=== PATIENT | male | born 1935 | race Caucasian/White ===

== ENCOUNTER → 2018-05-12 | Outpatient (REF) | payer OTHER | LOC: M LAB REF 09:34 | DX: N39.0 Urinary tract infection, site not specified (principal) | CPT/HCPCS: 87186 ==

== ENCOUNTER 2019-11-15 09:31 | Inpatient (IN) | payer OTHER ==
[~2019-11-15] VITALS: Ht 175.3 cm; Wt 73.6 kg
[2019-11-15] MEDS ORDERED: LIDOCAINE 2% 5ML JELLY UROJET TOP ONE (10:30)
[2019-11-15 10:45] LABS: VENOUS BASE EXCESS -2.7 (-2.0-2.0); VENOUS O2 SATURATION 60.8 % (60.0-80.0); VENOUS PARTIAL PRESSURE CO2 49.8 mmHg (38.0-50.0); VENOUS PH 7.301 UNITS (7.330-7.430); VENOUS STANDARD HCO3 21.5 MEQ/L; VENOUS TOTAL CO2 25.5 MEQ/L (24.0-28.0)
[2019-11-15] MEDS ORDERED: GABA800T4 PO (10:58)
[2019-11-15] MEDS ORDERED: LISI-542 PO (10:58)
[2019-11-15] MEDS ORDERED: GLIP10TA PO (11:00)
[2019-11-15] MEDS ORDERED: ATOR80TA59 PO (11:00)
[2019-11-15] MEDS ORDERED: CLOP75TA2 PO (11:00)
[2019-11-15] MEDS ORDERED: AMLO10TA5 PO (11:00)
[2019-11-15] MEDS ORDERED: ACAR50TA2 PO (11:00)
[2019-11-15 11:01] LABS: BASO % 0.2 % (0.0-1.0); EOS # 0.2 10^3/uL (0.0-0.5); EOS % 1.9 % (0.0-3.0); HEMATOCRIT 36.3 % (42.0-52.0); HEMOGLOBIN 11.7 g/dl (13.5-17.5); LYMPH # 1.8 10^3/uL (1.5-5.0); LYMPH % 14.7 % (24.0-44.0); MEAN CORPUSCULAR HEMOGLOBIN 32.1 pg (27.0-33.0); MEAN CORPUSCULAR HGB CONC 32.2 g/dl (32.0-36.5); MEAN CORPUSCULAR VOLUME 99.5 fl (80.0-96.0); MONO # 1.9 10^3/uL (0.0-0.8); MONO % 15.6 % (0.0-5.0); NEUTROPHILS # 8.1 10^3/uL (1.5-8.5); NEUTROPHILS % 67.3 % (36.0-66.0); PLATELET COUNT, AUTOMATED 158 10^3/uL (150-450); RED BLOOD COUNT 3.65 10^6/uL (4.30-6.10)
--- NOTE | 2019-11-15 11:15 | REP ---
Portable chest, 10:57 a.m., single AP view: There are no comparisons. The lung smith are clear. Cardiac size is normal. The geovanna, mediastinum, skeletal structures are unremarkable. Impression: Negative portable chest. Electronically Signed by Michael Brown MD 11/15/2019 11:07 A
--- NOTE | 2019-11-15 11:28 | REP ---
CT brain without contrast: History: Altered mental status. No comparison study. 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 The bony calvarium is intact. There is moderate vascular calcification in the distal carotid arteries bilaterally. There is an air-fluid level in the top of the right maxillary sinus. The paranasal sinuses are otherwise clear. No intraorbital abnormality is seen. On soft tissue window settings, there is mild generalized volume loss. There is no evidence of hemorrhage. There is a small 5 mm low density area in the right basal ganglia of uncertain significance. This could be a subacute lacunar infarct or an area of small vessel change. There is no evidence of cortical infarction. No extra-axial fluid collection, mass, or midline shift is appreciated. Also noted is a small 4 mm linear area of increased density to the left of midline in the juan jose. This is most compatible with a small dystrophic calcification. Impression: Vascular calcification, generalized atrophy. There is a 5 mm low density in the right basal ganglia uncertain significance, recent lacunar infarct is possible. There is a 4 mm linear density to the left of midline in the juan jose which may be a small dystrophic calcification. Consider MRI scanning. Electronically Signed by David Bess MD 11/15/2019 06:35 P
[2019-11-15 11:32] LABS: ALBUMIN 3.1 GM/DL (3.2-5.2); ALT/SGPT 22 U/L (12-78); BILIRUBIN,DIRECT 0.2 MG/DL (0.0-0.2); BILIRUBIN,TOTAL 0.6 MG/DL (0.2-1.0); BLOOD UREA NITROGEN 43 MG/DL (7-18); CALCIUM LEVEL 8.6 MG/DL (8.8-10.2); CARBON DIOXIDE LEVEL 26 MEQ/L (21-32); CHLORIDE LEVEL 103 MEQ/L (98-107); CK-MB VALUE MASS < 1.0 NG/ML (<3.6); CPK CREATINE PHOSPHOKINASE 150 U/L (39-308); CREATININE FOR GFR 2.84 MG/DL (0.70-1.30); GLOMERULAR FILTRATION RATE 22.7 (>35); GLUCOSE, FASTING 118 MG/DL (70-100); MB/CK RELATIVE INDEX 0.67 (< OR =4); POTASSIUM SERUM 4.5 MEQ/L (3.5-5.1); SODIUM LEVEL 137 MEQ/L (136-145); TOTAL PROTEIN 6.3 GM/DL (6.4-8.2); TROPONIN I < 0.02 NG/ML (< 0.10)
[2019-11-15] MEDS ORDERED: cefTRIAXone SOD 2 GM in D5W MINI-BAG PLUS 50 ML IV ONE (11:45)
--- NOTE | 2019-11-15 12:21 | REP ---
CT of the abdomen and pelvis without IV and oral contrast for renal/ureteral calculi: There are no comparisons. There is hydronephrosis of the left renal pelvis and entire left ureter to the bladder. However, there is no renal or ureteral calculus. This may represent a stricture of the distal ureter at the bladder. There are no right renal or ureteral calculi. There is no right hydronephrosis. There is minimal perinephric stranding bilaterally, compatible with patient age. There are faintly visible bilateral renal cortical hypodensities, likely renal cysts. The visualized lung smith are unremarkable. The unenhanced hepatic parenchyma, gallbladder, pancreas and spleen are unremarkable except for calcified splenic granulomas. The adrenals are unremarkable. The abdominal aorta is unremarkable except for occasional atheroma. There is no periaortic adenopathy or mass. There is no bowel distension or obstruction. Mesentery is unremarkable. There is no ascites. Pelvis: There is a 2.0 cm bladder diverticulum on the left. There are no bladder calculi. The bladder wall is unremarkable. There is no ascites or adenopathy. The pelvic bowel loops are unremarkable. Impression: There is left hydronephrosis and hydroureter to the urinary bladder. However, there is no renal or ureteral calculus. This may represent a stricture of the distal ureter at the bladder. There is a bladder diverticulum on the left measuring 2.1 cm diameter. Splenic calcified granulomas. Renal cortical cysts. Electronically Signed by Michael Brown MD 11/15/2019 12:13 P
[2019-11-15] MEDS ORDERED: TIMO0.5S39 OU (12:31)
[2019-11-15] MEDS ORDERED: ECOT81TA5 PO (12:31)
[2019-11-15] MEDS ORDERED: FISH1000 PO (12:31)
[2019-11-15] MEDS ORDERED: ISOS5TA PO (12:31)
[2019-11-15] MEDS ORDERED: XALA0.007 OU (12:31)
[2019-11-15] MEDS ORDERED: TYLETAB14 PO (12:34)
[2019-11-15] MEDS ORDERED: VITA100054 PO (12:34)
[2019-11-15] MEDS ORDERED: BACT800T5 PO (12:34)
[2019-11-15] MEDS ORDERED: GLUCOSE 4 GM CHEW TABLET PO PRN (13:15)
[2019-11-15] MEDS ORDERED: DEXTROSE 50% 50 ML SYRINGE IV PRN (13:15)
[2019-11-15] MEDS ORDERED: GLUCAGON FOR INJ 1 MG VIAL (J1610) SC PRN (13:15)
[2019-11-15] MEDS ORDERED: ACETAMINOPH W/CODEINE #3 TAB UD PO PRN (13:15)
[2019-11-15] MEDS ORDERED: NS 1,000 ML IV ONE (14:00)
[2019-11-15] MEDS ORDERED: BISACODYL 10 MG SUPP PR PRN (15:00)
[2019-11-15] MEDS: NS 1,000 ML IV SCH (15:45)
[2019-11-15 16:00] VITALS: BP 114/51
--- NOTE | 2019-11-15 18:27 | HPE ---
DATE OF ADMISSION: 11/15/2019 CHIEF COMPLAINT: Cloudy, foul smelling urine, difficulty ambulating. HISTORY OF PRESENT ILLNESS: This is an 84-year-old male with a history of chronic urinary retention with self catheterization at home, urinary tract infection (UTI), diabetes, coronary artery disease, myocardial infarction times three, follows with Dr. Sofia, glaucoma, peripheral neuropathy, who presents to the emergency room with 4 day history of weakness and falls, unable to get up from bed, needing help and feeling off balance. The patient has been having a chest cold and most recently given Bactrim on Monday from the [facility] for what was presumed to be a urinary tract infection (UTI). According to the , the patient has had dark cloudy urine despite drinking about three bottles of liquids at home. He has had a decreased appetite and has been increasingly weak. He usually catheterizes himself and has recently been requiring help from the family with his ambulation. He also complains of some rhinorrhea, cough productive of white sputum, sounding "rattly." No medications were taken. He has not had any weight gain or weight loss, nausea or vomiting, headaches, changes in vision. Denies any epigastric abdominal pain. The patient has taken Bactrim with worsening balance and weakness, prompting the family to bring him to the emergency room. In the emergency room, he had a low grade temperature of 99.2, white count of 12,000, urine had 3+ leukocyte esterase, 73 WBCs, and 1+ bacteria. Creatinine is markedly different from baseline of 1.5 to current creatinine of 2.8. The hospitalist service was called to admit for acute kidney injury on chronic renal failure, urinary tract infection (UTI), hydronephrosis, and questionable CVA on CT of the head. PAST MEDICAL HISTORY: 1. Diabetes. 2. Diabetic neuropathy. 3. Coronary artery disease. 4. Myocardial infarction December 2018 with three stents, follows with Dr. Sofia. 5. Glaucoma. 6. Neuropathy. 7. Urinary tract infection (UTI). PAST SURGICAL HISTORY: 1. Coronary stents times three in December 2018. 2. Hernia surgery. 3. Ureteral dilation. 4. Appendectomy as a young man. ALLERGIES: No known drug allergies. 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 Healthcare proxy is the . Phone number is [phone]. Medical Orders for Life Sustaining Treatment (MOLST) form indicates DO NOT RESUSCITATE, DO NOT INTUBATE. MOLST form has been signed. and the patient live in senior housing in [place]. He lives on a third floor with an elevator. The patient had previously lived in [place] and recently moved here permanently. Quit smoking 33 years ago. Previously smoked a pack a day from age 15 to the age of 39. FAMILY HISTORY: Noncontributory due to advanced age. REVIEW OF SYSTEMS: As per history of present illness. 12-point system otherwise negative. PHYSICAL EXAMINATION: VITAL SIGNS: Temperature 99.2, pulse 64, respiratory rate 20, blood pressure 105/54, 95% on room air. GENERAL: The patient is edentulous, awake, alert, oriented. Appears his stated age. There is no conversational dyspnea. Able to complete full sentences. Pupils are round and reactive. Extraocular muscles are intact. Tongue is midline. Dry mucous membranes. No cervical lymphadenopathy or thyromegaly. No jugular venous distention (JVD). Trachea is midline. No carotid bruits. LUNGS: Clear to auscultation. No wheezing, rales or rhonchi. HEART: S1, S2. Sinus rhythm. ABDOMEN: Soft, nontender, nondistended. Positive bowel sounds. No costovertebral angle tenderness. No rebound or guarding. No abdominal bruits. EXTREMITIES: Multiple excoriations on bilateral upper and lower extremities. No pitting edema. Electrocardiogram (EKG) is pending. LABORATORY DATA: White count 12, hemoglobin 11, hematocrit 36. Platelet count 158. Sodium 137, potassium 4.5, chloride 103, bicarbonate 26, BUN 43, creatinine 2.84, baseline of 1.5, glucose 118, lactic acid 1.9, calcium 8.6, total bilirubin 0.6, direct bilirubin 0.2, AST 21, ALT 22, alkaline phosphatase 78, ammonia 13, total CK 150, MB fraction less than 1, troponin less than 0.02, TSH 2.710. IMAGING STUDIES: CT of the head showed moderate calcification in distal carotid arteries bilaterally, air-fluid level in right maxillary sinus, 5 mm low density right basal ganglia of uncertain significance, could be subacute lacunar infarct or an area of small vessel change, no evidence of cortical infarction, no fluid collection or mid line shift. 4 cm linear increased density in the left midline of the juan jose compatible with small dystrophic calcification, consider MRI scan. Urinalysis was yellow in color, hazy appearance, pH of 5. Protein, glucose, ketones, blood, nitrate, bilirubin negative. Leukocyte esterase 3+. WBC 73, RBCs 4, 1+ bacteria. Chest x-ray showed lungs clear. Cardiac size is normal. Negative portable chest x-ray. CT of the abdomen and pelvis showed hydronephrosis of the left renal pelvis, entire left ureter to the bladder, no renal or ureteral calculus. May represent stricture of distal ureter of the bladder. No right hydronephrosis. Minimal perinephric stranding bilaterally compatible with age. Possible renal cyst. Lungs are unremarkable. Splenic calcified granulomas. ASSESSMENT AND PLAN: This is an 84-year-old male with a history of chronic urinary retention with self catheterization at home, diabetes, diabetic neuropathy, coronary artery disease, stent placed in December 2018 on chronic aspirin and Plavix, who presented to the emergency room with a 1 week history of worsening gait, upper respiratory symptoms and cloudy urine. THe patient was found to have acute on chronic renal failure, baseline creatinine of 1.5 and current creatinine is 2.8 with abnormal urinalysis and symptoms of urinary tract infection (UTI). He currently complains of dysuria, urgency, frequency, abdominal and discomfort, along with low grade fever. CT of the head to evaluate his weakness and gait ataxia revealed an abnormal CT with possible basal ganglia infarct. MRI is pending. The patient will be admitted as an inpatient for two midnights for the following issues: 1. Urinary tract infection present on admission. Most likely secondary to chronic urinary obstruction and self catheterization at home. The patient has been given intravenous ceftriaxone, which is renally dosed for 7 days. Urine culture to be sent, as well as blood cultures. 2. Hydronephrosis secondary to possible ureteral stricture to the bladder. Continue to monitor input and output. Gr catheter placement. Urology referral and consultation if patient has no significant improvement after fluid hydration and Gr catheter placement. No kidney stone noted. The patient may need dilation of the ureter. 3. Gait ataxia with questionable basal ganglia lacunar infarct. Obtain MRI and MRA of the brain. EKG. Cardiac markers. Telemetry monitoring. Neuro checks every 4 hours. The patient is already on aspirin and Plavix. 4. Coronary artery disease, myocardial infarction. Currently on aspirin. Uncertain why the patient is not on metoprolol. Continue on Lipitor and Plavix. 5. Diabetic neuropathy. On Neurontin. 6. Diabetes. On consistent carbohydrate diet, sliding scale and hypoglycemic protocol. 7. Chronic constipation. Bowel regimen. 8. Deep vein thrombosis (DVT) prophylaxis. Compression stockings. MTDD
[2019-11-15] MEDS: HumaLOG INSULIN (NovoLOG) PER UNIT SC SCH ×2 (18:43→21:00)
[2019-11-15] MEDS: LACTOBACILLUS ACIDOPHILUS CAP (BACID) PO SCH ×2 (18:45→22:04)
--- NOTE | 2019-11-15 19:07 | REPVR ---
PROCEDURE INFORMATION: Exam: US Duplex Bilateral Extracranial Arteries Exam date and time: 11/15/2019 6:09 PM Age: 84 years old Clinical indication: Walking, difficulty; Additional info: CVA TECHNIQUE: Imaging protocol: Real-time Duplex ultrasound scan of the bilateral carotid and vertebral arteries combining godinez scale, color Doppler and spectral waveform analysis. Bilateral exam. COMPARISON: No relevant prior studies available. FINDINGS: Right common carotid artery: Right CCA PSV 83.2 cm/s. Right internal carotid artery: Calcified and noncalcified plaque within the proximal right ICA. Right ICA PSV 209.3 cm/s. Right ICA/CCA ratio: Right ICA/CCA ratio is 2.52. Right external carotid artery: Calcified and noncalcified plaque within the proximal right ECA. Right ECA PSV 104.2 cm/s. Right vertebral artery: Patent right vertebral artery with bidirectional flow. Left common carotid artery: Soft plaque within the left CCA. Left CCA PSV 67.4 cm/s. Left internal carotid artery: Calcified and noncalcified plaque within the proximal left ICA. Left ICA PSV 99.3 cm/s. Left ICA/CCA ratio: Left ICA/CCA ratio 1.47. Left external carotid artery: Mild plaque within the proximal left ECA. Left ECA PSV 92.3 cm/s. Left vertebral artery: Patent left vertebral artery with bidirectional flow. IMPRESSION: 1. Right ICA stenosis: Moderate stenosis (50-69%). 2. Left ICA stenosis: Mild stenosis (left than 50%). REFERENCE: Carotid Stenosis Reference using SRU criteria: Mild: less than 50% stenosis. ICA PSV is less than 125 cm/second and plaque or intimal thickening is visible. Moderate: 50-69% stenosis. ICA PSV is 125 to 230 cm/second and plaque is visible. Severe: 70-94% stenosis. ICA PSV is more than 230 cm/second and visible plaque and lumen narrowing are seen. Near occlusion: 95-99% stenosis. ICA PSV is variable and significant plaque and luminal narrowing are seen. Occluded: 100% stenosis. No flow identified. Electronically signed by: Julian Sauceda On 11/15/2019 19:07:26 PM
[2019-11-15 20:24] LABS: CALCIUM LEVEL 7.9 MG/DL (8.8-10.2); CREATININE FOR GFR 2.71 MG/DL (0.70-1.30); GLOMERULAR FILTRATION RATE 23.9 (>35); POTASSIUM SERUM 4.4 MEQ/L (3.5-5.1)
--- NOTE | 2019-11-15 20:29 | ECGEPIP ---
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
--- NOTE | 2019-11-15 21:47 | REPVR ---
PROCEDURE INFORMATION: Exam: MR Head Without Contrast Exam date and time: 11/15/2019 11:48 AM Age: 84 years old Clinical indication: Weakness, extremity; Bilateral TECHNIQUE: Imaging protocol: MR of the head without contrast. 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 Nonspecific T2/FLAIR hyperintensities of the periventricular and deep subcortical white matter, most likely secondary to chronic small vessel ischemic change. No intracranial hemorrhage or extra-axial fluid collection. No evidence of mass effect or midline shift. No restricted diffusion to suggest acute infarct. Ventricles: Prominence of the ventricles and sulci, likely attributed to parenchymal volume loss. Bones/joints: Unremarkable. Soft tissues: Unremarkable. Sinuses: Air-fluid level in the right maxillary sinus. Mastoid air cells: No mastoid effusion. Orbits: Unremarkable. IMPRESSION: 1. No acute intracranial pathology. 2. Right maxillary sinusitis. 3. Other chronic findings, as above. Electronically signed by: Troy Urena On 11/15/2019 21:46:35 PM
[2019-11-15 22:00] VITALS: BP 115/56
--- NOTE | 2019-11-15 22:01 | REPVR ---
PROCEDURE INFORMATION: Exam: MR Angiogram Head Without Contrast, Arteries Exam date and time: 11/15/2019 11:48 AM Age: 84 years old Clinical indication: Bilateral extremity weakness. TECHNIQUE: Imaging protocol: MR angiogram head without contrast. Exam focused on the arteries. COMPARISON: CT Head without contrast 11/15/2019 10:54 AM, US - Duplex,carotid (complete) 11/15/2019 5:46:31 PM FINDINGS: Right internal carotid artery: Unremarkable. Intracranial segment is patent with no significant stenosis. No aneurysm. Right anterior cerebral artery: Unremarkable. No occlusion or significant stenosis. No aneurysm. Right middle cerebral artery: Unremarkable. No occlusion or significant stenosis. No aneurysm. Right posterior cerebral artery: Unremarkable. No occlusion or significant stenosis. No aneurysm. Right vertebral artery: Complete absence of flow related enhancement within the right vertebral artery. Left internal carotid artery: Unremarkable. Intracranial segment is patent with no significant stenosis. No aneurysm. Left anterior cerebral artery: Unremarkable. No occlusion or significant stenosis. No aneurysm. Left middle cerebral artery: Unremarkable. No occlusion or significant stenosis. No aneurysm. Left posterior cerebral artery: Unremarkable. No occlusion or significant stenosis. No aneurysm. Left vertebral artery: Unremarkable. No occlusion or significant stenosis. No aneurysm. Basilar artery: Unremarkable. No occlusion or significant stenosis. No aneurysm. IMPRESSION: Complete absence of flow related enhancement within the right vertebral artery. Although this could indicate potential obstruction of the superior right vertebral artery, the extracranial right vertebral artery was visualized and reported as patent on prior Doppler ultrasound. Therefore, this is highly suggestive of potential retrograde flow within the right vertebral artery, which could be secondary to underlying subclavian steal. Recommend correlation with CTA neck. Electronically signed by: Troy Urena On 11/15/2019 22:00:31 PM
[2019-11-15] MEDS: LATANOPROST 0.005% OPHTH SOLN 2.5 ML OU SCH (22:04)
[2019-11-15] MEDS: GABAPENTIN 400 MG CAP PO SCH (22:04)
[2019-11-15] MEDS: SENOKOT S TAB PO SCH (22:05)
[2019-11-15] MEDS: MIRALAX *UNIT DOSE* 17GM PACKET PO SCH (22:05)
[2019-11-16] MEDS: NS 1,000 ML IV SCH ×3 (04:33→16:17)
[2019-11-16 06:00] VITALS: BP 97/52
[2019-11-16 06:22] LABS: BASO % 0.2 % (0.0-1.0); EOS # 0.4 10^3/uL (0.0-0.5); EOS % 4.3 % (0.0-3.0); HEMATOCRIT 32.5 % (42.0-52.0); HEMOGLOBIN 10.4 g/dl (13.5-17.5); LYMPH # 1.5 10^3/uL (1.5-5.0); LYMPH % 18.4 % (24.0-44.0); MEAN CORPUSCULAR HEMOGLOBIN 31.7 pg (27.0-33.0); MEAN CORPUSCULAR VOLUME 99.1 fl (80.0-96.0); MONO # 1.4 10^3/uL (0.0-0.8); NEUTROPHILS # 4.9 10^3/uL (1.5-8.5); NEUTROPHILS % 59.9 % (36.0-66.0); PLATELET COUNT, AUTOMATED 143 10^3/uL (150-450); RED BLOOD COUNT 3.28 10^6/uL (4.30-6.10); WHITE BLOOD COUNT 8.2 10^3/uL (4.0-10.0)
[2019-11-16 06:28] LABS: CALCIUM LEVEL 7.8 MG/DL (8.8-10.2); CREATININE FOR GFR 2.37 MG/DL (0.70-1.30); GLOMERULAR FILTRATION RATE 27.9 (>35); POTASSIUM SERUM 4.5 MEQ/L (3.5-5.1)
--- NOTE | 2019-11-16 08:16 | ECGEPIP ---
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
[2019-11-16 09:00] VITALS: BP 92/40
[2019-11-16] MEDS ORDERED: amLODIPine 5 MG TAB PO SCH (09:00)
[2019-11-16] MEDS ORDERED: cefTRIAXone SOD 2 GM in D5W MINI-BAG PLUS 50 ML IV SCH (09:00)
[2019-11-16] MEDS: ASPIRIN 81 MG ENTERIC TAB PO SCH (09:51)
[2019-11-16] MEDS: LACTOBACILLUS ACIDOPHILUS CAP (BACID) PO SCH ×4 (09:51→20:00)
[2019-11-16] MEDS: SENOKOT S TAB PO SCH ×2 (09:51→20:00)
[2019-11-16] MEDS: ATORVASTATIN 20 MG TAB PO SCH (09:51)
[2019-11-16] MEDS: VITAMIN D 1,000 INTERNATIONAL UNITS TABLET PO SCH (09:51)
[2019-11-16] MEDS: GABAPENTIN 400 MG CAP PO SCH ×2 (09:51→20:00)
[2019-11-16] MEDS: HumaLOG INSULIN (NovoLOG) PER UNIT SC SCH ×4 (09:51→21:00)
[2019-11-16] MEDS: CLOPIDOGREL 75 MG TAB PO SCH (09:51)
[2019-11-16] MEDS: MIRALAX *UNIT DOSE* 17GM PACKET PO SCH ×2 (09:56→20:00)
[2019-11-16 10:00] VITALS: BP_SYST 108; BP_SYST 92; BP_DIAS 40; BP_DIAS 50
--- NOTE | 2019-11-16 13:08 | SMCUROLCON ---
Urology Consultation General Date of Consultation 11/16/19 Reason For Consultation This patient is seen for UTI, diminished renal function and left hydronephrosis History of Present Illness The patient is an 84-year-old white with a past medical history for BPH, urinary retention, and urethral strictures. He catheterizes twice a day and has been doing this for 2-11/14 years. He also voids spontaneously during the day catheterizing he will void. He states that he voids same amount as he catheterizes himself for. He presented to the hospital 2 days ago for UTI and weakness. A CT scan was performed showing left-sided hydronephrosis down to the level of the bladder. No calcifications were seen. He also had a left-sided bladder diverticulum and the bladder was pushed slightly to the right side of the pelvis. No pelvic masses were seen. He denies any voiding problems and no past history of prostate pr oblems. He gets yearly prostate exams and has never had any prostate issues in the past. The chart mentions ureteral strictures, but the patient states that it has always been urethral strictures, not the ureter. Past Medical History Medical History 1. Diabetes. 2. Diabetic neuropathy. 3. Coronary artery disease. 4. Myocardial infarction December 2018 with 3 cardiac stents. 5. Glaucoma. 6. Neuropathy. 7. Urinary tract infections Surgical Hstory 1. 3 Cardiac stents December 2018 2. Hernia surgery. 3. Urethral dilation. 4. 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 * Smoker: former Smoker Drugs: denies Medications Current Medications Current Medications Medications (Trade) Dose Ordered Sig/Cesario Route PRN Reason Start Time Stop Time Status Last Admin Dose Admin Acetaminophen/ Codeine Phosphate (Tylenol/Codeine #3 Tablet) 1 ea Q6H PRN PO PAIN 11/15/19 13:15 Amlodipine Besylate (Norvasc) 5 mg DAILY PO 11/16/19 09:00 11/16/19 10:02 DC Aspirin (Ecotrin) 81 mg DAILY PO 11/16/19 09:00 11/16/19 09:51 Atorvastatin Calcium (Lipitor) 80 mg DAILY PO 11/16/19 09:00 11/16/19 09:51 Bisacodyl (Dulcolax Suppository) 10 mg Q4HP PRN ID CONSTIPATION 11/15/19 15:00 Ceftriaxone Sodium 2 gm/ Dextrose 50 ml @ 100 mls/hr Q24H IV 11/16/19 09:00 11/16/19 10:07 DC 11/16/19 09:50 Clopidogrel Bisulfate (PLAVix) 75 mg DAILY PO 11/16/19 09:00 11/16/19 09:51 Dextrose (Dextrose 50%) 25 ml ASDIRECTED PRN IV SEE LABEL COMMENTS 11/15/19 13:15 Gabapentin (Neurontin) 400 mg BID PO 11/15/19 21:00 11/16/19 09:51 Glucagon (Glucagon) 1 mg ASDIRECTED PRN SC SEE LABEL COMMENTS 11/15/19 13:15 Glucose (Glucose) 16 GM ASDIRECTED PRN PO SEE LABEL COMMENTS 11/15/19 13:15 Home Med (Med Rec Complete!) ASDIRECTED XX 11/15/19 13:15 11/15/19 13:11 DC Insulin Human Lispro (HumaLOG INSULIN) SEE PROTOCOL TABLE AC SC 11/15/19 17:30 11/16/19 09:51 Insulin Human Lispro (HumaLOG INSULIN) SEE PROTOCOL TABLE QHS SC 11/15/19 21:00 Lactobacillus Acidophilus (Bacid) 1 ea WMHS PO 11/15/19 18:00 11/16/19 09:51 Latanoprost (Xalatan 0.005% Op Soln) 1 drop QHS OU 11/15/19 21:00 11/15/19 22:04 Polyethylene Glycol (Miralax) 1 pkt BID PO 11/15/19 21:00 11/16/19 09:56 Senna/Docusate Sodium (Senokot S) 2 tab BID PO 11/15/19 21:00 11/16/19 09:51 Sodium Chloride 1,000 ml @ 75 mls/hr [id number] IV 11/15/19 15:30 11/16/19 09:40 DC 11/15/19 15:45 Sodium Chloride 1,000 ml @ 100 mls/hr Q10H IV 11/16/19 09:45 Vitamin D (Vitamin D) 1,000 units DAILY PO 11/16/19 09:00 11/16/19 09:51 Allergies Allergies: Coded Allergies: No Known Allergies (Unverified , 11/15/19) Review of Systems General: Reports: Normal Appetite; Denies: Fatigue, Malaise Constitutional: Denies: Fever, Chills, Sweats, Weakness, Malaise Eyes: Denies: Pain, Vision change ENT: Denies: Head Aches, Sore Throat, Epistaxis Skin: Denies: Rash, Lesions, Breakdown, Nail Changes Pulmonary: Denies: Dyspnea, Cough Gastrointestinal: Denies: Nausea, Vomiting, Abdominal Pain Genitourinary: Reports: Retention Hematologic: Denies: Bruising, Bleeding Excessively Endocrine: Denies: Polydipsia, Polyphagia, Polyuria Musculoskeletal: Denies: Neck Pain, Back Pain Neurological: Denies: Weakness, Numbness, Incoordination, Change in Speech Physical Examination General Exam: Alert, No Acute Distress EYE EXAM: PERRLA, Conjunctiva & lids normal, EOMI; No: Sclera icteric ENT EXAM: Atraumatic, Mucous membr. moist/pink, Pharynx Normal Neck Exam: Supple; No: JVD, thyromegaly Chest Exam: Clear to auscultation, Normal air movement Heart Exam: Rate Normal, Regular Rhythm, Normal S1, Normal S2; No: Murmurs, Rubs Abdomen Exam: Normal Bowel Sounds, Soft; No: Tenderness, Hepatospenomegaly Male Exam: Normal Genital Exam Extremity Exam: Normal Pulses; No: Clubbing, Cyanosis, Edema Vital Signs/I&O Vital Signs Date Time Temp Pulse Resp B/P (MAP) Pulse Ox O2 Delivery O2 Flow Rate FiO2 11/16/19 10:00 92/40 (57) 11/16/19 06:00 98.0 57 18 94 Room Air I&O- Last 24 Hours up to 6 AM 11/16/19 06:00 Intake Total 1430 ml Output Total 1075 ml Balance 355 ml Laboratory Data 24H Labs Laboratory Tests 2 11/15/19 17:17: Bedside Glucose (Misc Panel) 171H 11/15/19 19:59: Anion Gap 6L, Glomerular Filtration Rate 23.9L, Calcium Level 7.9L 11/15/19 22:02: Bedside Glucose (Misc Panel) 168H 11/16/19 05:48: Anion Gap 5L, Glomerular Filtration Rate 27.9L, Calcium Level 7.8L, Immature Granulocyte % (Auto) 0.2, Neutrophils (%) (Auto) 59.9, Lymphocytes (%) (Auto) 18.4L, Monocytes (%) (Auto) 17.0H, Eosinophils (%) (Auto) 4.3H, Basophils (%) (Auto) 0.2, Neutrophils # (Auto) 4.9, Lymphocytes # (Auto) 1.5, Monocytes # (Auto) 1.4H, Eosinophils # (Auto) 0.4, Basophils # (Auto) 0.0, Nucleated Red Blood Cells % (auto) 0.0, Prostate Specific Antigen Screen 9.99H 11/16/19 11:49: Bedside Glucose (Misc Panel) 143H CBC/BMP Laboratory Tests 11/15/19 19:59 11/16/19 05:48 Microbiology Microbiology 11/15/19 Blood Culture - Preliminary, Resulted No growth after 24 hours . All specim... 11/15/19 Urine Culture - Final, Complete 11/15/19 Respiratory Virus Panel (PCR) (TIFFANIE) - Final, Complete Respiratory Syncytial Virus 11/15/19 Blood Culture - Preliminary, Resulted No growth after 24 hours . All specim... Assessment Review of his laboratory data shows that his renal function is improving. A CT scan shows that he has significant hydroureteronephrosis down to the ureterovesical junction are encountered but, unfortunately, this kidney appears to be the better of his 2 kidneys as the right kidney is somewhat smaller than the left. Plan Plan at this point is to repeat the CT scan since he has had the Gr catheter for over 12 hours now. Should have each has resolved, we need to go no further. At this point other than that, have him continue with self catheterizations twice a day. If the hydronephrosis remains, however, he should have a cystoscopic evaluation of the left ureteral orifice with perhaps a dilation of the ureteral orifice and stent insertion to see if this would improve his renal function. The As for his urinary tract infections. His urine culture currently is negative, but is long as he is asymptomatic and self catheterizing. I would not treat the urine unless he is symptomatic. Time Spent on Consult: Time Spent / Consult (Minutes): 75 FANNIE SPEARS MD Nov 16, 2019 12:44
[2019-11-16 14:00] VITALS: BP 143/55
--- NOTE | 2019-11-16 14:10 | REP ---
CT ABDOMEN AND PELVIS WITHOUT CONTRAST: 11/16/2019. Comparison: 11/15/2019. Clinical history: Re-evaluate left-sided hydronephrosis and hydroureter. Findings: CT abdomen and pelvis: Standard noncontrast protocol utilized. Lung bases show some subpleural fibrotic change and some cylindrical bronchiectatic change, are stable. Heart size stable. Left atrium mildly prominent. Small hiatal hernia. Stomach with moderate sized meal within. The liver and spleen unchanged with calcifications in the spleen. No hepatic mass, hepatosplenomegaly, biliary dilatation or ascites. Gallbladder contracted due to the recent meal. Adrenal glands and pancreas unremarkable. Small bowel loops intact. Abdominal portion of the colon shows stool and gas scattered throughout without colitis or diverticulitis. Lung windows show no perforation or free air in the abdomen or pelvis. Right kidney shows some upper pole scarring, peripheral cortical calcification upper pole. The left kidney also shows a few scattered areas of scarring. It has an upper pole lateral cyst about 1.2 cm. Neither kidney shows a stone. There is no hydronephrosis or hydroureter on the right. Left kidney shows that the collecting system and renal pelvis are smaller than yesterday. The ureter is slightly prominent as it courses towards the bladder but also decreased in size compared to yesterday's study. In addition, the bladder diverticulum on the left near the ureteral insertions is also reduced in size. No abdominal or pelvic lymphadenopathy or ascites. A Gr catheter is placed in the bladder, draining the bladder and with increase to wall thickness, difficult to magisterial district judge. Small amount of air in the bladder due to Gr insertion. There is bulging of omental fat into the upper inguinal canal on the left, but no bowel herniation. Right inguinal canal normal. Impression: 1. Gr catheter placed with some improvement in the left hydronephrosis and hydroureter. No renal, ureteral or bladder stone on either side. 2. Scarring upper pole left, minimally on the right and with renal cysts. No solid mass. 3. No other significant interval change. Electronically Signed by Shayne Preciado MD 11/16/2019 08:01 P
--- NOTE | 2019-11-16 17:05 | IPN ---
DATE: 11/16/2019 The patient says that he worked with physical therapy (PT) this morning. He did not have any dizziness when he got up from the bed as he walked over to his chair. He ate his breakfast at the bedside without any difficulty. He continue to cough and has rhinorrhea from known respiratory syncytial virus (RSV) detected on respiratory panel yesterday. The patient denies any shortness of breath, chest pain, pressure, tightness, fever or chills overnight. He had a Gr catheter placed yesterday due to hydronephrosis and acute on chronic renal failure. Input and output overnight was 740 in and 425 out, positive 325. This morning, since midnight, 690 in and 650 out, positive 40. Current weight is 70.3 kg. The patient denies any bilateral upper extremity pain, cyanosis, paresthesias. He said that he had no difficulty with his upper extremities. 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 CTA of the neck not be done secondary to acute on chronic renal failure, stage IV. The patient has had no fever or chills. Urine culture shows no growth. PHYSICAL EXAMINATION: VITAL SIGNS: Temperature 98, pulse 57, respiratory rate 18, blood pressure 92/40. 94% on room air. GENERAL: Awake, alert, oriented. Answering questions appropriately. No icterus. No jaundice. No jugular venous distention (JVD). Face is symmetric. Tongue is midline. Trachea is midline. No use of respiratory accessory muscles. No pharyngeal erythema or tonsillar exudates. LUNGS: Diminished but clear to auscultation. HEART: S1, S2. Sinus rhythm. ABDOMEN: Soft, nontender, nondistended. GENITOURINARY: Gr catheter with yellow urine. EXTREMITIES: No pitting edema. LABORATORY DATA: White count 8.2, hemoglobin 10, hematocrit 32, platelet count 143, previous platelet count of 158. Creatinine 2.37 from previous creatinine of 2.84 and glucose of 101. Microbiology: Respiratory syncytial virus (RSV). Urine culture negative. Blood culture pending. IMAGING STUDIES: Right internal carotid artery with moderate stenosis with 50 to 69%, left ICA mild stenosis less than 50%. MRI of the brain showed mild sinusitis, no acute CVA. 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 CT of the abdomen and pelvis with left hydronephrosis, hydroureter, distal ureteral stricture possible. ASSESSMENT AND PLAN: 84-year-old with a history of chronic urinary retention, chronic kidney disease III, baseline creatinine 1.5, diabetic neuropathy, coronary artery disease, myocardial infarction, glaucoma, admitted for evaluation of a 4 day history of weakness, falls, gait instability, treated with Bactrim as an outpatient for urinary tract infection (UTI), complained of rhinorrhea, upper respiratory symptoms and was found to have a creatinine of 2.8, abnormal urinalysis, admitted for a urinary tract infection, hydronephrosis, possible left distal ureteral stricture and was found to have abnormal CT with possible lacunar infarct, MRI of the brain showed no acute CVA. 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 1. Left hydronephrosis, no kidney stone. Despite Gr catheter and IV fluid hydration, there has been no significant change in his creatinine. Urologist has been consulted to determine if the patient needs further evaluation for ureteral stricture, possible dilation. Continue strict input and output, daily weights, Gr catheter placement. Urine culture is negative. The patient has been on intravenous ceftriaxone, which we will discontinue. 2. Acute on chronic renal failure, stage IV, baseline is stage III. Due to possible ureteral stricture. Defer to urology for any intervention needed. Currently on intravenous fluids, Gr catheter placement. 3. Respiratory syncytial virus (RSV). Droplet precautions. The patient is still exhibiting significant rhinorrhea. Supportive care for now. 4. 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 Check blood pressure in the left and right arm. Vascular surgery has been consulted. The patient appears to be asymptomatic. 5. History of coronary artery disease, myocardial infarction. Continue on aspirin, atorvastatin and Plavix. 6. Gait ataxia. Defer to acute rehabilitation. Activity as tolerated. Fall precautions, assist ambulation only. 7. Chronic constipation. On bowel regimen. 8. Vitamin D deficiency. Continue on supplement with 1000 mg daily. 9. Diabetic neuropathy. On chronic Neurontin. 10. Type 2 diabetes. Insulin sliding scale for now. MTDD
[2019-11-16] MEDS: LATANOPROST 0.005% OPHTH SOLN 2.5 ML OU SCH (20:00)
[2019-11-16 22:00] VITALS: BP 119/57
[2019-11-17] MEDS: NS 1,000 ML IV SCH ×3 (03:58→22:49)
[2019-11-17 06:00] VITALS: BP 109/59
[2019-11-17 06:28] LABS: BASO % 0.3 % (0.0-1.0); EOS # 0.5 10^3/uL (0.0-0.5); EOS % 6.5 % (0.0-3.0); HEMATOCRIT 33.2 % (42.0-52.0); HEMOGLOBIN 10.5 g/dl (13.5-17.5); LYMPH # 1.6 10^3/uL (1.5-5.0); LYMPH % 22.7 % (24.0-44.0); MEAN CORPUSCULAR HEMOGLOBIN 31.7 pg (27.0-33.0); MEAN CORPUSCULAR HGB CONC 31.6 g/dl (32.0-36.5); MEAN CORPUSCULAR VOLUME 100.3 fl (80.0-96.0); MONO % 14.2 % (0.0-5.0); NEUTROPHILS % 55.7 % (36.0-66.0); PLATELET COUNT, AUTOMATED 143 10^3/uL (150-450); RED BLOOD COUNT 3.31 10^6/uL (4.30-6.10); WHITE BLOOD COUNT 7.1 10^3/uL (4.0-10.0)
[2019-11-17 06:56] LABS: CALCIUM LEVEL 7.9 MG/DL (8.8-10.2); CREATININE FOR GFR 1.9 MG/DL (0.70-1.30); POTASSIUM SERUM 4.4 MEQ/L (3.5-5.1)
[2019-11-17] MEDS: HumaLOG INSULIN (NovoLOG) PER UNIT SC SCH ×4 (09:12→21:00)
[2019-11-17] MEDS: ASPIRIN 81 MG ENTERIC TAB PO SCH (09:13)
[2019-11-17] MEDS: GABAPENTIN 400 MG CAP PO SCH ×2 (09:13→21:19)
[2019-11-17] MEDS: ATORVASTATIN 20 MG TAB PO SCH (09:13)
[2019-11-17] MEDS: LACTOBACILLUS ACIDOPHILUS CAP (BACID) PO SCH ×4 (09:13→21:19)
[2019-11-17] MEDS: CLOPIDOGREL 75 MG TAB PO SCH (09:13)
[2019-11-17] MEDS: MIRALAX *UNIT DOSE* 17GM PACKET PO SCH ×2 (09:13→21:19)
[2019-11-17] MEDS: SENOKOT S TAB PO SCH ×2 (09:13→21:19)
[2019-11-17] MEDS: VITAMIN D 1,000 INTERNATIONAL UNITS TABLET PO SCH (09:13)
[2019-11-17 14:00] VITALS: BP 116/63
--- NOTE | 2019-11-17 15:57 | CR.PDOC ---
General Date of Consultation: Nov 16, 2019 Consultation REASON FOR CONSULTATION: Concern for subclavian steal HISTORY OF PRESENT ILLNESS: This is a very pleasant 84-year-old patient who was admitted for weakness and UTI and had an MRA of the head which noted lack of flow in the right vertebral artery. Of note, this is not a sensitive imaging study for vertebral artery flow. He then underwent a carotid duplex, and the report says there is bidirectional flow in the vertebral arteries, but I reviewed the imaging and he has antegrade flow in both the right and left vertebral artery. Additionally, the nurse was kind enough to take blood pr essures in both arms, and there is only a mild difference between the two, 108/50, and 92/40. The patient is asymptomatic. He does not have any claudication in the right upper extremity nor does he note any difference in temperature motor or sensation. There is no difference in the pulses between the radial arteries. He does not suffer any vertebral basilar symptoms. At this point, I do not see any signs of subclavian steal. I do not feel any further workup or intervention is needed at this time. ALLERGIES: Please see below. HOME MEDICATIONS: Please see below. PAST MEDICAL HISTORY: Coronary artery disease status post RI, glaucoma, diabetes with neuropathy, urinary retention requiring self-catheterization PAST SURGICAL HISTORY: Appendectomy, coronary stents, hernia surgery, ureteral dilation FAMILY HISTORY: Heart disease and diabetes SOCIAL HISTORY: Previous smoker, no current tobacco alcohol or illicit drug use REVIEW OF SYSTEMS: CONSTITUTIONAL: Positive fatigue and malaise and poor appetite HEENT: History of glaucoma CARDIOVASCULAR: History of RI RESPIRATORY: No shortness of breath or cough GENITOURINARY: History of urinary retention requiring straight cath now with UTI MUSCULOSKELETAL: History of some ambulatory dysfunction GASTROINTESTINAL: Denies nausea vomiting diarrhea SKIN: Denies rashes or wounds NEUROLOGICAL: Denies headaches or seizures PSYCHIATRIC: Denies anxiety or depression ENDOCRINE: Positive for diabetes HEMATOLOGIC/LYMPHATIC: Positive for easy bruising ALLERGIC/IMMUNOLOGIC: Positive for runny nose and allergies PHYSICAL EXAMINATION: VITAL SIGNS: Please see below. GENERAL APPEARANCE: Medically stable HEENT: Normocephalic tympanic membranes intact RESPIRATORY: Clear to auscultation CARDIOVASCULAR: Regular rate and rhythm ABDOMEN: Soft, nondistended no suprapubic tenderness to palpation EXTREMITIES: Warm and well-perfused NEUROLOGICAL: Alert and oriented, moves all extremities equally PSYCHIATRIC: Pleasant and cooperative LABORATORY DATA: Please see below. ASSESSMENT/PLAN: A 84-year-old gentleman with concern for subclavian steal, perfusion intact bilateral upper extremities and no symptoms of claudication or motor sensory deficits in the right upper extremity versus the left, and antegrade flow through both vertebral arteries on carotid duplex imaging. 1. No further testing or intervention required at this time. 2. Continue aspirin and statin daily. We appreciate the opportunity to participate in the care of this patient. Vital Signs/I&O Vital Signs Date Time Temp Pulse Resp B/P (MAP) Pulse Ox O2 Delivery O2 Flow Rate FiO2 11/17/19 14:00 98.0 65 18 116/63 (80) 91 Room Air I&O- Last 24 Hours up to 6 AM 11/17/19 05:59 Intake Total 3600 ml Output Total 1650 ml Balance 1950 ml Laboratory Data Labs 24H Laboratory Tests 2 11/16/19 17:16: Bedside Glucose (Misc Panel) 90 11/16/19 20:04: Bedside Glucose (Misc Panel) 173H 11/17/19 05:43: Immature Granulocyte % (Auto) 0.6, Neutrophils (%) (Auto) 55.7, Lymphocytes (%) (Auto) 22.7L, Monocytes (%) (Auto) 14.2H, Eosinophils (%) (Auto) 6.5H, Basophils (%) (Auto) 0.3, Neutrophils # (Auto) 4.0, Lymphocytes # (Auto) 1.6, Monocytes # (Auto) 1.0H, Eosinophils # (Auto) 0.5, Basophils # (Auto) 0.0, Nucleated Red Blood Cells % (auto) 0.0, Anion Gap 6L, Glomerular Filtration Rate 36.0, Calcium Level 7.9L 11/17/19 11:37: Bedside Glucose (Misc Panel) 105 CBC/BMP Laboratory Tests 11/17/19 05:43 Microbiology Microbiology 11/15/19 Blood Culture - Preliminary, Resulted No Growth after 48 hours. All Specime... 11/15/19 Urine Culture - Final, Complete 11/15/19 Respiratory Virus Panel (PCR) (TIFFANIE) - Final, Complete Respiratory Syncytial Virus 11/15/19 Blood Culture - Preliminary, Resulted No Growth after 48 hours. All Specime... Allergies Coded Allergies: No Known Allergies (Unverified , 11/15/19) Home Medications Scheduled Acarbose (Acarbose) 50 Mg Tablet, 100 MG PO WM, (Reported) Amlodipine Besylate (Amlodipine Besylate) 10 Mg Tablet, 5 MG PO DAILY, (Reported) Aspirin (Ecotrin) 81 Mg Tablet.dr, 81 MG PO DAILY, (Reported) Atorvastatin Calcium (Atorvastatin Calcium) 80 Mg Tablet, 80 MG PO DAILY, (Repo rted) Cholecalciferol (Vitamin D3) (Vitamin D3) 1,000 Unit Capsule, 1,000 UNIT PO DAILY, (Reported) Clopidogrel Bisulfate (Clopidogrel) 75 Mg Tablet, 75 MG PO DAILY, (Reported) Gabapentin (Gabapentin) 800 Mg Tablet, 400 MG PO BID, (Reported) Glipizide (Glipizide) 10 Mg Tablet, 10 MG PO BID, (Reported) Isosorbide Dinitrate (Isosorbide Dinitrate) 5 Mg Tablet, 5 MG PO TID, (Reported) NEW MEDICATION, HAS NOT STARTED - FAMILY EXPRESSED CONCERNS ABOUT THIS MEDICATION DECREASING HIS BLOOD PRESSURE Latanoprost (Xalatan) 0.005% 2.5ML Drops, 1 DROP OU QHS, (Reported) Lisinopril (Lisinopril) 5 Mg Tablet, 2.5 MG PO DAILY, (Reported) Sulfamethoxazole/Trimethoprim (Bactrim Ds Tablet) 1 Each Tablet, 1 TAB PO Q12H, (Reported) FILLED 11/13/19 Timolol Maleate (Timolol Maleate) 0.5% 5ML Drop.daily, 1 DROP OU BID, (Reported) Scheduled PRN Acetaminophen with Codeine (Tylenol with Codeine #3 Tablet) 1 Each Tablet, 1 TAB PO Q6H PRN for PAIN, (Reported) ASHA ASHRAF MD Nov 17, 2019 15:56
[2019-11-17] MEDS: LATANOPROST 0.005% OPHTH SOLN 2.5 ML OU SCH (21:20)
[2019-11-17 22:00] VITALS: BP 126/60
[2019-11-18 06:00] VITALS: BP 126/62
[2019-11-18 06:12] LABS: BASO % 0.4 % (0.0-1.0); EOS # 0.4 10^3/uL (0.0-0.5); EOS % 5.3 % (0.0-3.0); HEMATOCRIT 31.7 % (42.0-52.0); HEMOGLOBIN 10.3 g/dl (13.5-17.5); LYMPH # 1.8 10^3/uL (1.5-5.0); LYMPH % 24.1 % (24.0-44.0); MEAN CORPUSCULAR HEMOGLOBIN 32.1 pg (27.0-33.0); MEAN CORPUSCULAR HGB CONC 32.5 g/dl (32.0-36.5); MEAN CORPUSCULAR VOLUME 98.8 fl (80.0-96.0); MONO % 14.1 % (0.0-5.0); NEUTROPHILS # 4.1 10^3/uL (1.5-8.5); NEUTROPHILS % 55.7 % (36.0-66.0); PLATELET COUNT, AUTOMATED 161 10^3/uL (150-450); RED BLOOD COUNT 3.21 10^6/uL (4.30-6.10); WHITE BLOOD COUNT 7.4 10^3/uL (4.0-10.0)
[2019-11-18 06:32] LABS: CALCIUM LEVEL 7.9 MG/DL (8.8-10.2); CREATININE FOR GFR 1.61 MG/DL (0.70-1.30); GLOMERULAR FILTRATION RATE 43.6 (>35); POTASSIUM SERUM 4.2 MEQ/L (3.5-5.1)
--- NOTE | 2019-11-18 07:18 | ECHO ---
DATE OF PROCEDURE: 11/16/2019 DATE OF : 1935 AGE: 84 GENDER: Male. HEIGHT: 69 inches. WEIGHT 154 pounds. BODY SURFACE AREA: 1.85 meters squared. LOCATION: Inpatient [address] [place] [address], room 4230. REFERRING PHYSICIAN: Dr. Doreen Vance INDICATION: Shortness of breath. MEASUREMENTS 2-D MEASUREMENTS: RV - 3.4 cm LV - 4.6 cm Septum 1.1 cm Posterior wall 1.0 cm Aortic root 3.8 cm LA - 4.4 cm LVEF 65% DOPPLER MEASUREMENTS: AV - 1.27 m/s LVOT - 0.86 m/s LVOT - 2.0 cm MV-E 81, A 55, E/A ratio 1.5 Early mitral deceleration time 282 milliseconds E prime medial 5.2 A prime medial 11 E prime lateral 6.3 Average E/E prime ratio 14.1/PCWP - 19.4 mmHg PV - 0.7 m/s Pulmonary artery acceleration time 99 ms PASP 37 mmHg IVC - 2.0 cm COMMENTS: Normal sinus rhythm without intraventricular conduction disturbance. Somewhat challenging study in light of the patient's body habitus, but diagnostically useful information was still obtained. Normal left ventricular size and wall thickness with localized proximal and mid inferior hypo to akinesis yet preserved global resting systolic function. Mildly dilated left atrium with grade 2 LV diastolic dysfunction and at least mildly elevated estimated mean left atrial pressure. Normal right heart chamber sizes and motion with mild pulmonary hypertension. Normal IVC size and collapse against an elevated central venous pressure at this time. Mild aortic valvular sclerosis without stenosis and only very mild insufficiency. Normal aortic root diameters. Mildly thickened mitral valvular apparatus with normal leaflet excursion and only mild mitral insufficiency. Normal appearing tricuspid valve with very mild insufficiency. No apparent intracardiac mass or pericardial effusion.
[2019-11-18] MEDS: LACTOBACILLUS ACIDOPHILUS CAP (BACID) PO SCH ×4 (08:56→20:23)
[2019-11-18] MEDS: SENOKOT S TAB PO SCH ×2 (08:56→20:23)
[2019-11-18] MEDS: ASPIRIN 81 MG ENTERIC TAB PO SCH (08:56)
[2019-11-18] MEDS: HumaLOG INSULIN (NovoLOG) PER UNIT SC SCH ×4 (08:56→20:24)
[2019-11-18] MEDS: VITAMIN D 1,000 INTERNATIONAL UNITS TABLET PO SCH (08:56)
[2019-11-18] MEDS: ATORVASTATIN 20 MG TAB PO SCH (08:56)
[2019-11-18] MEDS: MIRALAX *UNIT DOSE* 17GM PACKET PO SCH ×2 (08:56→20:23)
[2019-11-18] MEDS: GABAPENTIN 400 MG CAP PO SCH ×2 (08:56→20:24)
[2019-11-18] MEDS: CLOPIDOGREL 75 MG TAB PO SCH (08:56)
[2019-11-18] MEDS: NS 1,000 ML IV SCH ×2 (08:57→20:02)
[2019-11-18 14:00] VITALS: BP 120/65
--- NOTE | 2019-11-18 19:52 | IPN ---
DATE: 11/17/2019 THe patient denies any upper extremity weakness, paresthesias, pallor, cyanosis. He was found to have possible subclavian steal, but blood pressure was normal on bilateral upper extremities. He continues to have some gait ataxia, which is slightly improved. He is currently on intravenous fluids with improvement in his creatinine due to hydronephrosis. Repeat CT shows improvement. No need for ureteral dilation. Afebrile overnight. No chills. No dysuria, urgency, frequency. No abdominal pain. No constipation. The patient had one bowel movement today, which was formed. PHYSICAL EXAMINATION: VITAL SIGNS: Temperature 98, pulse 58, respiratory rate 18, blood pressure 109/59, 93% on room air. GENERAL: Awake, alert, oriented times three. Answering questions appropriately. No respiratory distress or use of respiratory accessory muscles. Able to speak in full sentences. LUNGS: Clear to auscultation. No wheezing, rales or rhonchi. HEART: S1, S2. Sinus rhythm. No murmurs, rubs or gallops. ABDOMEN: Soft, nontender, nondistended. Positive bowel sounds. Gr catheter in place. Yellow urine. No blood. EXTREMITIES: No pitting edema. LABORATORY DATA: White count 7.1, hemoglobin 10, hematocrit 33, platelet count 143. Sodium 143, potassium 4.4, chloride 115, bicarbonate 22, BUN 31, creatinine 1.9, glucose 114. ASSESSMENT AND PLAN: This is an 84-year-old male with chronic urine retention, chronic kidney disease stage III, baseline creatinine 1.5 to 1.8, diabetes with diabetic neuropathy, coronary artery disease, myocardial infarction, glaucoma, admitted due to 4 day history of weakness, gait instability, treated for urinary tract infection (UTI) with Bactrim. Had several day history of rhinorrhea, upper respiratory infection, seen in the emergency room and was found to have acute on chronic renal failure with creatinine of 2.8, hydronephrosis on CT with possible ureteral stricture. CT of the head showed possible lacunar infarct. MRI showed no acute pathology, but questionable subclavian steal. However, the patient had normal blood pressure on both upper extremities. 1. Hydronephrosis due to obstructive uropathy. Repeat CT is improved, therefore, per urology, no need for further intervention. Continue with IV fluid hydration and Gr catheter placement. On hospital discharge, the patient is given the option to intermittent catheterizations or Gr catheter with outpatient followup. 2. Acute on chronic renal failure, stage IV. Improving on intravenous fluids and Gr catheter placement. 3. Respiratory syncytial virus (RSV). Droplet precautions. Supportive care. 4. Gait imbalance and deconditioning. Acute rehabilitation unit consulted. MRI of the brain showed no acute stroke. No subclavian steal as blood pressure is normal in bilateral upper extremities. 5. Coronary artery disease, myocardial infarction. On atorvastatin, Plavix. 6. Diabetic neuropathy. On Neurontin. 7. Diabetes. On sliding scale, consistent carbohydrate diet. DISPOSITION: Pending acute rehabilitation and improvement clinically with his creatinine. MTDD
[2019-11-18] MEDS: LATANOPROST 0.005% OPHTH SOLN 2.5 ML OU SCH (20:24)
[2019-11-18 22:00] VITALS: BP 130/65
[2019-11-19 06:00] VITALS: BP 128/67
[2019-11-19 06:03] LABS: BASO % 0.5 % (0.0-1.0); EOS # 0.4 10^3/uL (0.0-0.5); EOS % 4.8 % (0.0-3.0); HEMATOCRIT 32.7 % (42.0-52.0); HEMOGLOBIN 10.6 g/dl (13.5-17.5); LYMPH % 24.3 % (24.0-44.0); MEAN CORPUSCULAR HEMOGLOBIN 31.8 pg (27.0-33.0); MEAN CORPUSCULAR HGB CONC 32.4 g/dl (32.0-36.5); MEAN CORPUSCULAR VOLUME 98.2 fl (80.0-96.0); NEUTROPHILS # 4.8 10^3/uL (1.5-8.5); NEUTROPHILS % 57.7 % (36.0-66.0); PLATELET COUNT, AUTOMATED 184 10^3/uL (150-450); RED BLOOD COUNT 3.33 10^6/uL (4.30-6.10); WHITE BLOOD COUNT 8.4 10^3/uL (4.0-10.0)
[2019-11-19] MEDS: NS 1,000 ML IV SCH (06:23)
[2019-11-19 06:25] LABS: CALCIUM LEVEL 7.9 MG/DL (8.8-10.2); CREATININE FOR GFR 1.37 MG/DL (0.70-1.30); GLOMERULAR FILTRATION RATE 52.6 (>35); POTASSIUM SERUM 4.2 MEQ/L (3.5-5.1)
[2019-11-19] MEDS: HumaLOG INSULIN (NovoLOG) PER UNIT SC SCH (09:24)
[2019-11-19] MEDS: LACTOBACILLUS ACIDOPHILUS CAP (BACID) PO SCH (09:24)
[2019-11-19] MEDS: SENOKOT S TAB PO SCH (09:24)
[2019-11-19] MEDS: CLOPIDOGREL 75 MG TAB PO SCH (09:24)
[2019-11-19] MEDS: VITAMIN D 1,000 INTERNATIONAL UNITS TABLET PO SCH (09:24)
[2019-11-19] MEDS: ATORVASTATIN 20 MG TAB PO SCH (09:24)
[2019-11-19] MEDS: GABAPENTIN 400 MG CAP PO SCH (09:24)
[2019-11-19] MEDS: ASPIRIN 81 MG ENTERIC TAB PO SCH (09:24)
[2019-11-19] MEDS: MIRALAX *UNIT DOSE* 17GM PACKET PO SCH (09:24)
[2019-11-19] MEDS ORDERED: RISATAB3 PO (10:48)
--- NOTE | 2019-11-19 11:16 | IPN ---
DATE: 11/18/2019 Patient is anxious to go home, but the is concerned about him being unsteady on his feet and with risk of falls. The patient's creatinine is improved to 1.6 with fluid hydration and Gr catheter placement. Per physical therapy the patient is unsafe to be discharged today. Patient currently denies any dysuria, urgency or frequency. Gr catheter in place. No gross hematuria. No flank pain, fever or chills, nausea, vomiting, epigastric pain. No shortness of breath (SOB), palpitations or lightheadedness. PHYSICAL EXAMINATION: VITAL SIGNS: Temperature 97.6, pulse 66, respiratory rate 20, blood pressure 126/62, 94% on room air. GENERAL: Patient is awake, alert, and oriented to person and place, answering questions appropriately. Edentulous. LUNGS: Diminished bibasilar crackles. HEART: S1, S2. Sinus rhythm. ABDOMEN: Soft, nontender, nondistended. Gr catheter in place. EXTREMITIES: No pitting edema. LABORATORY DATA: White count 7.3, hemoglobin 10, hematocrit 31, platelet count 161. Sodium 143, potassium 4.2, chloride 114, bicarbonate 22, BUN 23, creatinine 1.61, glucose 133. Microbiology: Respiratory syncytial virus (RSV). Repeat imaging studies, CT abdomen and pelvis, 11/16/[address] with some improvement of left hydronephrosis and hydroureter. No stone on either side. Scarring in the left upper pole. No solid mass. No other significant interval change. ASSESSMENT AND PLAN: This is an 84-year-old male with history of chronic urine retention, chronic kidney disease stage III, baseline creatinine 1.5, diabetic neuropathy, coronary artery disease, myocardial infarction, glaucoma, admitted for evaluation due to 4 day history of weakness as well as gait instability, treated for a urinary tract infection (UTI) with Bactrim as an outpatient, complained of rhinorrhea, upper respiratory infection, found to have a creatinine of 2.8, abnormal urinalysis, admitted for UTI, hydronephrosis with acute on chronic renal failure, possible distal ureteral stricture on CT abdomen on admission. Due to ataxia, CT head was performed, also shows possible lacunar infarct. MRI of the brain showed no acute CVA. MRA of the brain shows complete absence of flow in the right vertebral artery, possible subclavian steel, evaluated by vascular surgery, Dr. Marks, with no obvious true occlusion. IMPRESSION: 1. Left hydronephrosis. Patient is doing well with improvement on repeat CT abdomen and pelvis, currently with Gr catheter, IV fluid hydration. He currently denies any dyspnea or dyspnea on exertion. Continue with fluid hydration until the patient's creatinine is back to baseline. Urologist, Dr. Ferrer, has been consulted, did not feel the need for any intervention as the patient's hydronephrosis is improving and creatinine is improving. 2. Acute on chronic renal failure, due to obstructive uropathy. Currently improving. Urology recommends no further intervention. 3. Respiratory syncytial virus (RSV). Supportive care and handwashing. 4. Abnormal MRI of the brain. Per Dr. Marks of vascular surgery, incidental findings but good flow and no intervention required. 5. History coronary artery disease, myocardial infarction. Continue on aspirin, Plavix and atorvastatin. Unsure why the patient is not a beta-john. Obtain records from Dr. Lee's office. 6. Diabetes. On sliding scale for now. 7. Hyperlipidemia. On Lipitor. DISPOSITION: Patient has not passed a home safety evaluation.
--- NOTE | 2019-11-19 13:32 | DS.PDOC ---
Discharge Summary General Date of Admission Nov 15, 2019 at 13:10 Date of Discharge 11/19/2019 Discharge Summary PROCEDURES PERFORMED DURING STAY: [None]. ADMITTING DIAGNOSES / DISCHARGE DIAGNOSES: GUERA on CKD Hydronephrosis URTI - 2/2 RSV Abnormal MRI; suggestive of Subclavian steal syndrome - unlikely CAD s/p Stent (12/2018) Neuropathy DM2 DVT prophylaxis COMPLICATIONS/CHIEF COMPLAINT: Abnormal gait / Cloudy urine HISTORY OF PRESENT ILLNESS: Patient is an 84-year-old male with past medical history of chronic urinary retention (s/p Intermittent catheterizations), DM2, Neuropathy, CAD s/p stent (12/2018), who presented to the ER with worsening gait, cloud urine and upper respiratory symptoms. Patient was found to have a urinary tract infection and an elevation of his creatinine from his baseline of 1.5. Patient was admitted to hospitalist service for further evaluation and treatment. HOSPITAL COURSE: GUERA on CKD - Cr baseline of 1.5; has improved with IV fluid hydration - Has improved to better than baseline - s/p IV fluids Hydronephrosis - Imaging has revealed improvement of hydroureteronephrosis - Urology on consultation; recommended return to intermittent catheterizations - Will have outpatient follow up with Urology within 7 days URTI - 2/2 RSV - Clinically improved - Hemodynamically stable and afebrile - Does not require oxygen Abnormal MRI; suggestive of Subclavian steal syndrome - unlikely - No further imaging / testing was warranted - Vascular surgery was called on consultation; appreciate their input Abnormal gait - possibly 2/2 above - Clinically has progressed well - Imaging noted below; no acute abnormalities - Cleared Physical therapy - . We'll have outpatient follow-up with primary care within 7 days CAD s/p Stent (12/2018) - c/w ASA and Plavix Neuropathy - c/w Gabapentin DM2 - c/w ISS DVT prophylaxis - c/w TEDs/Sequentials DISCHARGE MEDICATIONS: Please see below. ALLERGIES: Please see below. PHYSICAL EXAMINATION ON DISCHARGE: Vitals (See below) General: Lying in bed, comfortable, AAOx3 HEENT: NC, AT CVS: RRR, +S1S2 Lungs: Fair air entry b/l, -w/r/r Abdomen: Soft, ND, NT Extremities: - Edema, - Calf tenderness LABORATORY DATA: Please see below. IMAGING: CT abdomen / pelvis 11/16: 1. Gr catheter placed with some improvement in the left hydronephrosis and hydroureter. No renal, ureteral or bladder stone on either side. 2. Scarring upper pole left, minimally on the right and with renal cysts. No solid mass. 3. No other significant interval change. Vascular US Carotids 11/15: 1. Right ICA stenosis: Moderate stenosis (50-69%). 2. Left ICA stenosis: Mild stenosis (left than 50%). MRI Brain 11/15: 1. No acute intracranial pathology. 2. Right maxillary sinusitis. 3. Other chronic findings, as above. MRA Brain 11/15: Complete absence of flow related enhancement within the right vertebral artery. Although this could indicate potential obstruction of the superior right vertebral artery, the extracranial right vertebral artery was visualized and reported as patent on prior Doppler ultrasound. Therefore, this is highly suggestive of potential retrograde flow within the right vertebral artery, which could be secondary to underlying subclavian steal. Recommend correlation with CTA neck. CT abdomen / pelvis 11/15: There is left hydronephrosis and hydroureter to the urinary bladder. However, there is no renal or ureteral calculus. This may represent a stricture of the distal ureter at the bladder. There is a bladder diverticulum on the left measuring 2.1 cm diameter. Splenic calcified granulomas. Renal cortical cysts. CXR 11/15: Negative portable chest. Heat CT 11/15: Vascular calcification, generalized atrophy. There is a 5 mm low density in the right basal ganglia uncertain significance, recent lacunar infarct is possible. There is a 4 mm linear density to the left of midline in the juan jose which may be a small dystrophic calcification. Consider MRI scanning. ACTIVITY: [As tolerated]. DISCHARGE PLAN: Follow up with Dr. Roxanne Trinidad and Urology within 7 days Remain compliant with treatment plan and medications Return to the ER if you experience any problems DISPOSITION: Home, Self-Care. DISCHARGE CONDITION: [Stable]. TIME SPENT ON DISCHARGE: 35 minutes Vital Signs/I&Os Vital Signs Date Time Temp Pulse Resp B/P (MAP) Pulse Ox O2 Delivery O2 Flow Rate FiO2 11/19/19 06:00 98.1 70 18 128/67 (87) 97 Room Air I&O- Last 24 Hours up to 6 AM 11/19/19 06:00 Intake Total 4812 ml Output Total 3125 ml Balance 1687 ml Laboratory Data Labs 24H Laboratory Tests 2 11/18/19 16:43: Bedside Glucose (Misc Panel) 131H 11/18/19 20:17: Bedside Glucose (Misc Panel) 92 11/19/19 05:44: Immature Granulocyte % (Auto) 0.7, Neutrophils (%) (Auto) 57.7, Lymphocytes (%) (Auto) 24.3, Monocytes (%) (Auto) 12.0H, Eosinophils (%) (Auto) 4.8H, Basophils (%) (Auto) 0.5, Neutrophils # (Auto) 4.8, Lymphocytes # (Auto) 2.0, Monocytes # (Auto) 1.0H, Eosinophils # (Auto) 0.4, Basophils # (Auto) 0.0, Nucleated Red Blood Cells % (auto) 0.0, Anion Gap 7L, Glomerular Filtration Rate 52.6, Calcium Level 7.9L CBC/BMP Laboratory Tests 11/19/19 05:44 FSBS Laboratory Tests Test 11/18/19 16:43 11/18/19 20:17 Range/Units Bedside Glucose (Misc Panel) 131 92 83-110 MG/DL Microbiology Microbiology 11/15/19 Blood Culture - Preliminary, Resulted No Growth after 72 hours. All specime... 11/15/19 Urine Culture - Final, Complete 11/15/19 Respiratory Virus Panel (PCR) (TIFFANIE) - Final, Complete Respiratory Syncytial Virus 11/15/19 Blood Culture - Preliminary, Resulted No Growth after 72 hours. All specime... Discharge Medications Scheduled Acarbose (Acarbose) 50 Mg Tablet, 100 MG PO WM, (Reported) Amlodipine Besylate (Amlodipine Besylate) 10 Mg Tablet, 5 MG PO DAILY, (Reported) Aspirin (Ecotrin) 81 Mg Tablet.dr, 81 MG PO DAILY, (Reported) Atorvastatin Calcium (Atorvastatin Calcium) 80 Mg Tablet, 80 MG PO DAILY, (Reported) Cholecalciferol (Vitamin D3) (Vitamin D3) 1,000 Unit Capsule, 1,000 UNIT PO DAILY, (Reported) Clopidogrel Bisulfate (Clopidogrel) 75 Mg Tablet, 75 MG PO DAILY, (Reported) Gabapentin (Gabapentin) 800 Mg Tablet, 400 MG PO BID, (Reported) Glipizide (Glipizide) 10 Mg Tablet, 10 MG PO BID, (Reported) Isosorbide Dinitrate (Isosorbide Dinitrate) 5 Mg Tablet, 5 MG PO TID, (Reported) NEW MEDICATION, HAS NOT STARTED - FAMILY EXPRESSED CONCERNS ABOUT THIS MEDICATION DECREASING HIS BLOOD PRESSURE Lnita/José/Krish/Ozzytherm (Rubina-Bid Caplet) 1 Each Tablet, 1 EA PO BID Latanoprost (Xalatan) 0.005% 2.5ML Drops, 1 DROP OU QHS, (Reported) Lisinopril (Lisinopril) 5 Mg Tablet, 2.5 MG PO DAILY, (Reported) Sulfamethoxazole/Trimethoprim (Bactrim Ds Tablet) 1 Each Tablet, 1 TAB PO Q12H, (Reported) FILLED 11/13/19 Timolol Maleate (Timolol Maleate) 0.5% 5ML Drop.daily, 1 DROP OU BID, (Reported) Scheduled PRN Acetaminophen with Codeine (Tylenol with Codeine #3 Tablet) 1 Each Tablet, 1 TAB PO Q6H PRN for PAIN, (Reported) Allergies Coded Allergies: No Known Allergies (Unverified , 11/15/19) RAGINI EDGAR MD Nov 19, 2019 13:32
== END 2019-11-19 12:00 | disposition home or self-care (01) | DRG 465 ==
LOC: M ED 09:31 → M ED INP 13:10 → ENRESERVTM 13:47 → ENRESERVDT 13:47 → M MSPAV 15:22
PROVIDERS: ADMIT General Practice; ATTEND Internal Medicine
DX: N13.30 Unspecified hydronephrosis (principal); E11.42 Type 2 diabetes mellitus with diabetic polyneuropathy; N17.9 Acute kidney failure, unspecified; B97.4 Respiratory syncytial virus as the cause of diseases classified elsewhere; N39.0 Urinary tract infection, site not specified; Z95.1 Presence of aortocoronary bypass graft; R33.9 Retention of urine, unspecified; I25.10 Atherosclerotic heart disease of native coronary artery without angina pectoris; I25.2 Old myocardial infarction; Z66 Do not resuscitate; H40.9 Unspecified glaucoma; Z96.0 Presence of urogenital implants; Z79.82 Long term (current) use of aspirin; Z79.01 Long term (current) use of anticoagulants; Z87.440 Personal history of urinary (tract) infections; K59.09 Other constipation; R26.0 Ataxic gait; N40.0 Benign prostatic hyperplasia without lower urinary tract symptoms; E55.9 Vitamin D deficiency, unspecified; Z72.3 Lack of physical exercise; E78.5 Hyperlipidemia, unspecified; N18.9 Chronic kidney disease, unspecified; Z79.899 Other long term (current) drug therapy; J06.9 Acute upper respiratory infection, unspecified

== ENCOUNTER 2020-09-20 11:04 | Emergency (ER) | payer OTHER ==
[~2020-09-20] VITALS: Ht 175.3 cm; Wt 70.9 kg
[~2020-09-20 11:04] MED LIST: ACAR50TA3 PO; AMLO1TAB25 PO; ATOR80TA59 PO; BACT800T5 PO; CLOP75TA2 PO; ECOT81TA5 PO; FISH1000 PO; GABA800T4 PO; GLIP10TA PO; ISOS5TA PO; LISI-542 PO; RISATAB3 PO; TIMO0.5S39 OU; TYLETAB14 PO; VITA100054 PO; XALA0.007 OU
[2020-09-20 11:40] LABS: BASO % 0.1 % (0.0-1.0); EOS # 0.6 10^3/uL (0.0-0.5); EOS % 6.1 % (0.0-3.0); HEMATOCRIT 38.7 % (42.0-52.0); HEMOGLOBIN 12.7 g/dl (13.5-17.5); LYMPH # 0.7 10^3/uL (1.5-5.0); LYMPH % 7.3 % (24.0-44.0); MEAN CORPUSCULAR HEMOGLOBIN 30.3 pg (27.0-33.0); MEAN CORPUSCULAR HGB CONC 32.8 g/dl (32.0-36.5); MEAN CORPUSCULAR VOLUME 92.4 fl (80.0-96.0); MONO # 0.9 10^3/uL (0.0-0.8); MONO % 9.2 % (0.0-5.0); NEUTROPHILS # 7.5 10^3/uL (1.5-8.5); NEUTROPHILS % 76.9 % (36.0-66.0); PLATELET COUNT, AUTOMATED 156 10^3/uL (150-450); RED BLOOD COUNT 4.19 10^6/uL (4.30-6.10); WHITE BLOOD COUNT 9.7 10^3/uL (4.0-10.0)
--- NOTE | 2020-09-20 11:42 | REP ---
INDICATION: CHEST PAIN COMPARISON: 11/15/2019 TECHNIQUE: Portable AP view of the chest FINDINGS: The mediastinum and cardiac silhouette are stable and within normal limits for portable technique. The lung smith demonstrate chronic appearing changes although subtle basilar atelectasis cannot be excluded. No discrete focal consolidation. No obvious effusion. No pneumothorax. Skeletal structures demonstrate age-related changes. IMPRESSION: Relatively chronic appearing changes although subtle basilar atelectasis cannot be excluded. <Electronically signed by Salty Muller > 09/20/20 [id number]
[2020-09-20 12:13] LABS: ALBUMIN 3.2 GM/DL (3.2-5.2); ALT/SGPT 26 U/L (12-78); BILIRUBIN,DIRECT 0.3 MG/DL (0.0-0.2); BLOOD UREA NITROGEN 30 MG/DL (7-18); CALCIUM LEVEL 8.6 MG/DL (8.8-10.2); CARBON DIOXIDE LEVEL 25 MEQ/L (21-32); CHLORIDE LEVEL 103 MEQ/L (98-107); CPK CREATINE PHOSPHOKINASE 89 U/L (39-308); CREATININE FOR GFR 2.05 MG/DL (0.70-1.30); GLOMERULAR FILTRATION RATE 32.9 (>35); GLUCOSE, FASTING 267 MG/DL (70-100); LIPASE 76 U/L (73-393); MB/CK RELATIVE INDEX 1.12 (< OR =4); POTASSIUM SERUM 4.1 MEQ/L (3.5-5.1); SODIUM LEVEL 135 MEQ/L (136-145); TOTAL PROTEIN 6.3 GM/DL (6.4-8.2); TROPONIN I < 0.02 NG/ML (< 0.10)
[2020-09-20] MEDS ORDERED: CEPHALEXIN 500 MG CAP PO ONE (16:00)
[2020-09-20] MEDS ORDERED: KEFL500C17 PO (16:17)
[2020-09-20 17:30] VITALS: BP 157/76
--- NOTE | 2020-09-20 20:39 | ECGEPIP ---
[facility] - ED Test Date: 2020-09-20 Pat Name: MILLI SHAY Department: Room: - Gender: Male General Intern: ulices : 1935 Requested By: BRIGIDO Hale Order Number: [id number] Reading MD: Brianna Harden Measurements Intervals [place] Rate: 70 P: 7 [place]: 160 QRS: -26 QRSD: 121 T: -18 QT: 376 QTc: 408 Interpretive Statements SINUS RHYTHM MODERATE INTRAVENTRICULAR CONDUCTION DELAY NONSPECIFIC T-WAVE ABNORMALITY SIMILAR 11/15/19 Electronically Signed on 09-20-2020 20:39:26 EST by Brianna Harden
== END 2020-09-20 17:43 | disposition home or self-care (01) ==
LOC: M ED 11:04
DX: N39.0 Urinary tract infection, site not specified (principal); E86.0 Dehydration; R06.02 Shortness of breath; R42 Dizziness and giddiness; E11.40 Type 2 diabetes mellitus with diabetic neuropathy, unspecified; Z98.61 Coronary angioplasty status; I10 Essential (primary) hypertension